=== PATIENT | female | born 1955 | race African-American/Black ===

== ENCOUNTER → 2017-05-08 | Outpatient (CLI) | payer OTHER ==
[2016-05-10 15:19] VITALS: BP 86/51
[~2017-05-08] MED LIST: FERR-26 PO; FOLI1TAB16 PO; GABA-586 PO; HYDR-2762 PO; HYDR-2766 PO; MELO15TA6 PO; MULT-47 PO; OLME1TAB25 PO; OLME1TAB35 PO; WARF5TAB7 PO
--- NOTE | 2017-05-08 13:57 | EKG ---
[facility] [address] [place] [address] Test Date: 2017-05-08 Test Time: 13:59:37 Pat Name: JENNY STUART Department: Room: Gender: F [employer]: : 1955 Requested By: STACEY PINEDA Order Number: [id number] Reading MD: Yony Squires Measurements Intervals [place] Rate: 62 P: 37 MN: 192 QRS: 31 QRSD: 100 T: 25 QT: 402 QTc: 410 Interpretive Statements SINUS RHYTHM LEFT ATRIAL ABNORMALITY NONSPECIFIC ST-T WAVE CHANGES RI6.01 Compared to ECG 04/25/2016 12:46:49 Atrial abnormality now present Electronically Signed On 05-09-2017 11:35:40 CDT by Yony Squires
[2017-05-08 15:13] LABS: BASO % 1 % (0-3); EOS % 3 % (0-3); HEMATOCRIT 34.2 % (36.0-47.0); HEMOGLOBIN 11.3 g/dL (12.0-15.5); LYMPH # 0.7 x10^3/uL (1.0-4.8); LYMPH % 14 % (24-48); MEAN CORPUSCULAR HEMOGLOBIN 27 pg (25-35); MEAN CORPUSCULAR HGB CONC 33 g/dL (31-37); MEAN CORPUSCULAR VOLUME 81 fL (79-100); MONO % 7 % (0-9); NEUT % 75 % (31-73); PLATELET COUNT 195 x10^3/uL (140-400); RED BLOOD COUNT 4.21 x10^6/uL (3.50-5.40); RED CELL DISTRIBUTION WIDTH 15.8 % (11.5-14.5); WHITE BLOOD COUNT 4.6 x10^3/uL (4.0-11.0)
[2017-05-08 15:14] LABS: BILIRUBIN,URINE NEGATIVE (NEG); GLUCOSE,URINE NEGATIVE (NEG); NITRITE,URINE NEGATIVE (NEG); PROTEIN,URINE NEGATIVE (NEG-TRACE)
[2017-05-08 15:23] LABS: PROTHROMBIN TIME PATIENT 12.8 SEC (11.7-14.0)
[2017-05-08 15:23] LABS: BACTERIA,URINE FEW /HPF (0-FEW); RBC,URINE OCC /HPF (0-2); SQUAMOUS EPITHELIAL CELL,UR MANY /LPF
--- NOTE | 2017-05-08 15:31 | RAD ---
INDICATION: PRE OP, PT TO HAVE KNEE SURGERY. COMPARISON: 04/25/2016 FINDINGS: Frontal and lateral views of chest obtained. Cardiac silhouette is not grossly enlarged. Degenerative changes of the spine. No definite focal airspace consolidation. IMPRESSION: No definite focal airspace consolidation.
[2017-05-08 15:35] LABS: ALBUMIN 3.6 g/dL (3.4-5.0); CALCIUM 9.1 mg/dL (8.5-10.1); CREATININE 1.3 mg/dL (0.6-1.0); GFR 50.1; POTASSIUM 4.3 mmol/L (3.5-5.1)
== END | disposition home or self-care (01) ==
LOC: SURGPAT 13:12
PROVIDERS: ATTEND Orthopaedic Surgery
DX: Z01.818 Encounter for other preprocedural examination (principal); Z98.890 Other specified postprocedural states
CPT/HCPCS: 36415; 71020; 80048; 81001; 82040; 83036; 85027; 85610; 85651; 85730; 87086; 87641; 93005

== ENCOUNTER → 2017-05-21 | Outpatient (CLI) | payer OTHER ==
[2016-05-10 15:19] VITALS: BP 86/51
--- NOTE | 2017-05-21 13:41 | CARD ---
APPROVED REPORT EXAM: Two-dimensional and M-mode echocardiogram with Doppler and color Doppler. Other Information Quality : Average Rhythm : NSR INDICATION Abnormal ECG Left atrial enlargement on EKG 2D DIMENSIONS RVDd3.3 (2.9-3.5cm)Left Atrium(2D)3.6 (1.6-4.0cm) IVSd0.9 (0.7-1.1cm)Aortic Root(2D)3.1 (2.0-3.7cm) LVDd4.9 (3.9-5.9cm)LVOT Diameter2.0 (1.8-2.4cm) PWd1.0 (0.7-1.1cm)LVDs2.8 (2.5-4.0cm) FS (%) 39.7 %SV81.5 ml Aortic Valve AoV Peak Andreas.114.4cm/sAoV VTI26.0cm AO Peak GR.5.2mmHgLVOT Peak Andreas.123.2cm/s LVOT VTI 22.47cmAO Mean GR.3mmHg CECIL (VMAX)3.55vo8ZSL (VTI)2.72cm2 Mitral Valve MV E Jypbszho54.8cm/sMV DECEL LKYA906er MV A Shtxuxvf78.5cm/sMV E Mean Gr.2mmHg MV JEA39heD/A Ratio1.0 MV A Qufidetk434hiSQL (PHT)3.00cm2 TDI E/Lateral E'5.2E/Medial E'5.5 Pulmonary Valve PV Peak Cjvuymsu235.3cm/sPV Peak Grad.8mmHg RVOT VTI20.1cm Tricuspid Valve TR P. Tgdghksq729ur/sRAP XBRXUKJK1ojHb TR Peak Gr.67elViMMGM16tpBx Pulmonary Vein S1 Bnoksjlo04.9cm/sD2 Inbsqgxg96.0cm/s LEFT VENTRICLE The left ventricle is normal size. There is normal left ventricular wall thickness. Left ventricle sy stolic function is normal. The Ejection Fraction is 60-65%. There is normal LV segmental wall motion. The left ventricular diastolic function and filling is normal for age. There is no ventricular septa l defect visualized. RIGHT VENTRICLE The right ventricle is normal size. The right ventricular systolic function is normal. ATRIA The left atrium size is normal. The right atrium size is normal. The interatrial septum is intact wit h no evidence for an atrial septal defect or patent foramen ovale as noted on 2-D or Doppler imaging. AORTIC VALVE The aortic valve is normal in structure and function. The aortic valve is trileaflet. Doppler and Col or Flow revealed no significant aortic regurgitation. There is no significant aortic valvular stenosi s. MITRAL VALVE The mitral valve leaflets are thickened. There is no mitral valve stenosis. Doppler and Color Flow re vealed trace mitral regurgitation. TRICUSPID VALVE The tricuspid valve is normal in structure and function. Doppler and Color Flow revealed trace to mil d tricuspid regurgitation. The PA pressure was estimated at 27 mmHg. There is no tricuspid valve sten osis. PULMONIC VALVE The pulmonic valve is not well visualized. Doppler and Color Flow revealed trace to mild pulmonic lizzie vular regurgitation. There is no pulmonic valvular stenosis. GREAT VESSELS The aortic root is normal in size. The ascending aorta is normal in size. Normal pulmonary venous prakash w (Doppler). The IVC is normal in size and collapses >50% with inspiration. PERICARDIAL EFFUSION There is no evidence of significant pericardial effusion. Critical Notification Critical Value: No <Conclusion> The left ventricle is normal size. Left ventricle systolic function is normal. The Ejection Fraction is 60-65%. There is normal left ventricular wall thickness. There is no significant aortic valvular stenosis. Doppler and Color Flow revealed no significant aortic regurgitation. Doppler and Color Flow revealed trace mitral regurgitation. Doppler and Color Flow revealed trace to mild tricuspid regurgitation. The PA pressure was estimated at 27 mmHg. Doppler and Color Flow revealed trace to mild pulmonic valvular regurgitation.
== END | disposition home or self-care (01) ==
LOC: ECHO 12:24
PROVIDERS: ATTEND Internal Medicine
DX: I08.1 Rheumatic disorders of both mitral and tricuspid valves (principal)
CPT/HCPCS: 93306

== ENCOUNTER → 2019-09-23 | Outpatient (CLI) | payer OTHER ==
[2017-06-01 15:27] VITALS: BP 139/61
[~2019-09-23] MED LIST changes: -FERR-26 PO; +FERR325T14 PO; -GABA-586 PO; +GABA300C18 PO; -HYDR-2762 PO; +HYDR-2765 PO; -HYDR-2766 PO; +HYDR-2769 PO; +WARF-31 PO; +WARF-78 PO; -WARF5TAB7 PO
--- NOTE | 2019-09-23 11:41 | KCIC ---
Bone mineral density study dated 09/23/2019. Indication: Postmenopausal screening.. Findings: Lower lumbar spine: BMD (g/cm2): Total L1-L4.......... 1.720. . T-Score: Total L1-L4.................... 6.1. Z-Score: Total L1-L4 ................... 7.2. Left Hip: BMD (g/cm2): Total .......... 1.171. . T-Score: Total .................... 1.9. Z-Score: Total ................... 1.9. World Health Organization criteria for BMD interpretation classify patients as Normal (T-score at or above -1.0), Osteopenic (T-score between -1.0 and -2.5), or Osteoporotic (T-score at or below -2.5). Impression: According to the World Health Organization, bone mineral density values are within the range of normal. Electronically signed by: Mateusz Mccormick MD (09/23/2019 11:38 AM) [facility]
--- NOTE | 2019-09-24 09:19 | KCIC ---
Bilateral digital screening mammograms: Reason for examination: Routine screening. Comparison is made to previous studies dated 02/05/2018 and 02/02/2017. Interpretation was made with the benefit of CAD. The skin and nipples show no abnormalities. No abnormal axillary lymph nodes are seen. The breast parenchyma is heterogeneously dense. (Breast density: Category C) There are small nodular parenchymal densities seen bilaterally which are stable. There are no new dominant masses, suspicious calcifications or architectural distortion. Scattered benign calcifications are again seen. Impression: No evidence of malignancy. Recommend routine screening. Your patient's mammogram demonstrates that she has dense breast tissue (breast density category C or D), which could hide abnormalities, and if she has other risk factors for breast cancer that have been identified, she might benefit from supplemental screening tests that may be suggested by you as her ordering physician. Dense breast tissue, in and of itself, is a relatively common condition. Therefore, this information is not provided to cause undue concern, but rather to raise your awareness and to promote discussion with your patient regarding the presence of other risk factors, in addition to dense breast tissue. Your patient's mammography results will be sent to her. BI-RADS Category 2: Benign. "Our facility is accredited by the [employer] Mammography Program." This patient's information has been entered into a reminder system for the patient to be notified with the results of her examination and a target date for the next mammogram. Electronically signed by: Lillie Laurent MD (09/24/2019 9:16 AM) [id number]
== END | disposition home or self-care (01) ==
LOC: KCIC DEXA 10:35
PROVIDERS: ATTEND Nurse Practitioner Gerontology
DX: Z12.31 Encounter for screening mammogram for malignant neoplasm of breast (principal); Z13.820 Encounter for screening for osteoporosis; N64.89 Other specified disorders of breast; N95.9 Unspecified menopausal and perimenopausal disorder
CPT/HCPCS: 77067; 77080